=== PATIENT | male | born 1960 | race Hispanic/Latino ===

== ENCOUNTER 2019-10-24 20:28 | Inpatient (IN) | payer SELFPAY ==
[2019-10-24 21:05] LABS: #Eosinphils 0.1 thou/uL (0.0-0.7); #Monocytes 0.6 thou/uL (0.11-0.59); #Neutrophils 5.1 thou/uL (1.40-6.50); %Basophils 0.4 % (0.0-1.0); %Eosinophils 1.2 % (0.0-10.0); %Lymphocytes 33.9 % (21.0-51.0); %Monocytes 6.6 % (0.0-10.0); %Neutrophils 57.9 % (42.0-75.0); Hemoglobin 15.4 g/dL (14.0-18.0); Mean Corpuscular HGB CONC 34.5 g/dL (32.0-36.0); Mean Corpuscular Hemoglobin 30.7 pg (27.0-31.0); Mean Corpuscular Volume 89.1 fL (78.0-98.0); Mean Platelet Volume 9.3 fL (7.4-10.4); Platelet Count 194 thou/uL (130-400); RBC Distribution Width 11.7 % (11.5-14.5); Red Blood Cell (RBC) Count 5.02 mill/uL (4.70-6.10); White Blood Cell (WBC) Count 8.8 thou/uL (4.8-10.8)
[2019-10-24 21:29] LABS: ALT (SGPT) 18 U/L (8-55); AST (SGOT) 16 U/L (5-34); Albumin 4.4 g/dL (3.5-5.0); Alkaline Phosphatase 90 U/L (40-110); Anion Gap 14 mmol/L (10-20); BUN (Urea Nitrogen) 18 mg/dL (8.4-25.7); Bilirubin, Total 0.6 mg/dL (0.2-1.2); CK (CPK) 146 U/L (30-200); Calc. Creatinine Clearance 0 mL/min (70-130); Calcium 9.4 mg/dL (7.8-10.44); Carbon Dioxide 25 mmol/L (22-29); Chloride 104 mmol/L (98-107); Estimated GFR-MDRD 74; Globulin 3.3 g/dL (2.4-3.5); Glucose 96 mg/dL (70-105); Lipase 32 U/L (8-78); Potassium 3.9 mmol/L (3.5-5.1); Protein, Total 7.7 g/dL (6.0-8.3); Sodium 139 mmol/L (136-145)
[2019-10-24 21:49] LABS: CKMB 1.7 ng/mL (0-6.6)
[2019-10-24] MEDS ORDERED: Aspirin Chewable 81 MG TAB ONE (22:02)
[2019-10-24] MEDS ORDERED: Nitroglycerin 0.4 MG TAB (25 Tab Bottle) PO PRN (23:17)
[2019-10-24] MEDS ORDERED: Pantoprazole 40 MG VIAL IVP SCH (23:30)
--- NOTE | 2019-10-25 00:06 | PDOC.HHP ---
Hospitalist HPI - History of Present Illness Chest pain History of Present Illness: PCP: Will The patient is a 59/M with PMH significant for GERD and obesity that presents to the ER for the above complaint. The patient reports developing chest pain at 1600, while driving in the car with his spouse. Pain located epigastric, non radiating, 7/10 at onset, exacerbated by laying flat and relieved by belching, cold water and eating ice. Although, he did trial antacids with no relief. Currently, he says sitting up in the chair makes it better. He denies any heart palpitations, light headedness, sob, wheezing, nausea or vomiting. Has had reflux in the past. States this pain is similar. He had trialed prilosec several years ago, but stopped taking because " I dont like to take pills". Has been treating with dietary changes, such as small meals prior to bedtime and stopped drinking caffeinated drinks. Currently his pain has subsided. He has no history of HTN, HLD, DM and does not smoke. He has no history of COPD or asthma. He has no history of DVT or PE. He has no history of illicit drug usage. His father and brother have had heart bypass surgery ED Course: EKG NSR, 71 bpm, no ST elevations Trop 0.082 CKMB 1.7 CXR no acute cardiopulmonary process CMP and CBC and lipase unremarkable Given ASA 324mg Hospitalist ROS - Review of Systems Constitutional: denies: fever, chills, sweats, weakness, malaise, other Eyes: denies: pain, vision change, conjunctivae inflammation, eyelid inflammation, redness, other ENT: denies: ear pain, ear discharge, nose pain, nose discharge, nose congestion , mouth pain, mouth swelling, throat pain, throat swelling, other Respiratory: denies: cough, dry, shortness of breath, hemoptysis, SOB with excertion, pleuritic pain, sputum, wheezing, other Cardiovascular: reports: chest pain. denies: palpitations, orthopnea, paroxysmal noc. dyspnea, edema, light headedness Gastrointestinal: denies: nausea, vomiting, abdominal pain, diarrhea, constipation, melena, hematochezia, other Genitourinary: denies: dysuria, frequency, incontinence, hematuria, retention, other Musculoskeletal: denies: neck pain, shoulder pain, arm pain, back pain, hand pain, leg pain, foot pain, other Skin: denies: rash, lesions, jaquelin, bruising, other Neurological: denies: weakness, numbness, incoordination, change in speech, confusion, seizures, other Hospitalist History - Past Medical History Gastrointestinal: reports: GERD, Other (obesity) - Family History Family History: reports: cardiac disorder (father and brother Bypass surgery) - Social History Smoking Status: Never smoker Alcohol: reports: None Drugs: reports: none Living Situation: With Family Occupation: Lives in [place], retired HH worker Activity level: independent ambulation - Exam General Appearance: NAD, awake alert Eye: anicteric sclera ENT: normocephalic atraumatic Neck: supple, no JVD Heart: RRR, no murmur, no gallops, no rubs, normal peripheral pulses Respiratory: CTAB, no wheezes, no rales, no ronchi, no tachypnea Gastrointestinal: soft, non-tender, non-distended, normal bowel sounds, no guarding, no rigidity Extremities: no cyanosis, no edema Neurological: no focal deficits Musculoskeletal: normal tone, normal strength Psychiatric: normal affect, A&O x 3 Hospitalist Results - Labs Result Diagrams: 10/24/19 20:54 10/24/19 20:54 Lab results: WBC 8.8 thou/uL (4.8-10.8) 10/24/19 20:54 Hgb 15.4 g/dL (14.0-18.0) 10/24/19 20:54 Hct 44.7 % (42.0-52.0) 10/24/19 20:54 MCV 89.1 fL (78.0-98.0) 10/24/19 20:54 Plt Count 194 thou/uL (130-400) 10/24/19 20:54 Neutrophils % 57.9 % (42.0-75.0) 10/24/19 20:54 Sodium 139 mmol/L (136-145) 10/24/19 20:54 Potassium 3.9 mmol/L (3.5-5.1) 10/24/19 20:54 Chloride 104 mmol/L (98-107) 10/24/19 20:54 Carbon Dioxide 25 mmol/L (22-29) 04/14/20 20:54 BUN 18 mg/dL (8.4-25.7) 10/24/19 20:54 Creatinine 1.03 mg/dL (0.7-1.3) 10/24/19 20:54 Glucose 96 mg/dL (70-105) 10/24/19 20:54 Calcium 9.4 mg/dL (7.8-10.44) 10/24/19 20:54 Total Bilirubin 0.6 mg/dL (0.2-1.2) 10/24/19 20:54 AST 16 U/L (5-34) 10/24/19 20:54 ALT 18 U/L (8-55) 10/24/19 20:54 Alkaline Phosphatase 90 U/L (40-110) 10/24/19 20:54 Creatine Kinase 146 U/L (30-200) 10/24/19 20:54 CK-MB (CK-2) 1.7 ng/mL (0-6.6) 10/24/19 20:54 Troponin I 0.082 ng/mL (< 0.028) H 10/24/19 20:54 Serum Total Protein 7.7 g/dL (6.0-8.3) 10/24/19 20:54 Albumin 4.4 g/dL (3.5-5.0) 10/24/19 20:54 Lipase 32 U/L (8-78) 10/24/19 20:54 - EKG Interpretation EKG: NSR - Radiology Interpretation Chest x-ray Status: report reviewed by mo Hospitalist H&P A/P - Problem (1) Chest pain Code(s): R07.9 - CHEST PAIN, UNSPECIFIED Status: Acute Assessment and Plan: Admit to telemetry, observation status Expected stay less than 2 midnights HEART SCORE 2, low risk Trend troponins NM exercise Stress test Continue ASA Check mag and TSH and FLP NPO after midnight (2) Elevated troponin Code(s): R79.89 - OTHER SPECIFIED ABNORMAL FINDINGS OF BLOOD CHEMISTRY Status : Acute Assessment and Plan: Trend troponins (3) GERD (gastroesophageal reflux disease) Code(s): K21.9 - GASTRO-ESOPHAGEAL REFLUX DISEASE WITHOUT ESOPHAGITIS Status: Chronic Assessment and Plan: Start protonix 40mg IVP tonight (4) Obesity (BMI 30-39.9) Code(s): E66.9 - OBESITY, UNSPECIFIED Status: Acute Assessment and Plan: Patient actively trying to lose weight Diet and exercise - Plan Plan: SCDs for DVT prophylaxis Protonix for GI prophylaxis Consult walking program Full Code FERNANDO Garcia (spouse) at [phone] Uribe
[2019-10-25] MEDS ORDERED: Magnesium 2 GM/50 ML 2 GM in Premix Bag 1 BAG IVPB SCH (00:30)
[2019-10-25 00:43] VITALS: BMI 38.7
[2019-10-25] MEDS: Nitroglycerin 2% Ointment 1 INCH/1 GM Packet TOP SCH ×3 (02:26→21:35)
[2019-10-25 06:01] LABS: Cardiac Risk 5.5 (Less than 4.5); Magnesium 2.3 mg/dL (1.6-2.6)
[2019-10-25 06:10] LABS: Troponin I 2.098 ng/mL (< 0.028)
[2019-10-25] MEDS ORDERED: Enoxaparin Sodium 100 MG/ML SYRINGE SC SCH (06:30)
--- NOTE | 2019-10-25 07:51 | RAD ---
Chest one view HISTORY: Chest pain. FINDINGS: Cardiac silhouette is magnified by projection. Pulmonary vasculature is unremarkable. Mediastinum is midline. No lobar consolidation or evidence of pneumothorax. monitor and storage bin tender leads overlie the chest. IMPRESSION : No active cardiopulmonary abnormalities are demonstrated.
[2019-10-25] MEDS ORDERED: Communication Order-Pharmacy FS SCH (08:45)
[2019-10-25] MEDS ORDERED: Aspirin 325 mg Enteric Coated Tablet PO SCH (09:00)
[2019-10-25] MEDS ORDERED: Nitroglycerin 100MG/250ML BOT 250 ML ONE (11:32)
[2019-10-25] MEDS ORDERED: Verapamil 5 MG/2 ML VIAL ONE (11:32)
[2019-10-25] MEDS ORDERED: Heparin 10,000 UNITS/1 ML VIAL ONE (11:32)
--- NOTE | 2019-10-25 11:42 | PDOC.HOSPP ---
- Subjective Encounter Date: 10/25/19 Encounter Time: 11:40 Subjective: was seen today in follow-up of NSTEMI. He says right now he feels fine. He denies any chest pain. - Objective Vital Signs & Weight: Vital Signs (12 hours) Temp Pulse Resp BP BP Pulse Ox 10/25/19 11:30 97.9 F 57 L 16 125/83 99 10/25/19 07:56 97.8 F 61 16 129/85 100 10/25/19 03:06 97.7 F 52 L 17 145/95 H 98 10/25/19 01:43 54 L 17 139/86 99 10/25/19 00:32 97.9 F 68 14 153/75 H 153/75 H 98 Weight Weight 277 lb 11.214 oz I&O: 10/24/19 10/25/19 10/26/19 06:59 06:59 06:59 Intake Total 50 Balance 50 Result Diagrams: 10/24/19 20:54 10/24/19 20:54 Hospitalist ROS - Medication Medications: Active Medications Generic Name Dose Route Start Last Admin Trade Name Freq PRN Reason Stop Dose Admin Aspirin 81 mg 10/25/19 09:00 10/25/19 09:09 Ecotrin PO Not Given DAILY [facility] Nitroglycerin 0.5 inch 10/25/19 06:00 10/25/19 02:26 Nitro-Bid 2% Ointment TOP 0.5 inch Q8HR [facility] Administration - Exam Eye: PERRL, anicteric sclera Heart: RRR, no murmur, no gallops, no rubs, normal peripheral pulses Respiratory: CTAB, no wheezes, no rales, no ronchi, normal chest expansion, no tachypnea, normal percussion Gastrointestinal: soft, non-tender, non-distended, normal bowel sounds, no palpable masses Hosp A/P (1) NSTEMI (non-ST elevated myocardial infarction) Code(s): I21.4 - NON-ST ELEVATION (NSTEMI) MYOCARDIAL INFARCTION Status: Acute (2) Hypertension Code(s): I10 - ESSENTIAL (PRIMARY) HYPERTENSION Status: Chronic (3) Diabetes mellitus type 2 in obese Code(s): E11.69 - TYPE 2 DIABETES MELLITUS WITH OTHER SPECIFIED COMPLICATION; E66.9 - OBESITY, UNSPECIFIED Status: Chronic (4) Obesity (BMI 30-39.9) Code(s): E66.9 - OBESITY, UNSPECIFIED Status: Chronic (5) Dyslipidemia Code(s): E78.5 - HYPERLIPIDEMIA, UNSPECIFIED Status: Chronic - Plan * NSTEMI- has been evaluated by Dr. Anders. The plan is for cardiac cath * HTN- blood pressure is stable * DM-blood glucose is stable * Dylipidemia- continue high dose Lipitor * Discussed heart health diet
--- NOTE | 2019-10-25 12:24 | CON ---
DATE OF CONSULTATION: 10/25/2019 INDICATION FOR CONSULTATION: A 59-year-old gentleman with [id number] elevation myocardial infarction. HISTORY OF PRESENT ILLNESS: This is a very pleasant 59-year-old gentleman, who has had no previous cardiac history, but does have hypercholesterolemia. He has not been taking any medication. He has family members who have undergone bypass surgery, two brothers and his father also, some of them in their 50s and his father I believe was up in his late 60s or 70s when he had bypass surgery. He has had no previous cardiac history, but yesterday while driving, he noted some what he thought was indigestion, radiated to the lower retrosternal area, was not improved with antacids. He did say that ice helped some and he said he has not had pain like this in the past. He has had some reflux in the past, which is worse if he is lying down, but otherwise he has had no previous pain in the past. He has no pain this morning. His cardiac enzymes on admission showed a troponin I of 0.08. This continued to increased up to 0.29 in this morning, it is now up to 2.09. His EKG showed a normal sinus rhythm with no acute changes. He has had a couple of episodes of AIVR, about 16 beats was the longest, but otherwise seems to be relatively stable at this time, but continues to have elevation of the cardiac enzymes, which appear to be increasing. He had no other complaints. He had no shortness of breath or dyspnea. PAST MEDICAL HISTORY: Unremarkable for any significant operations or illnesses. REVIEW OF SYSTEMS: A 12-point review of systems unremarkable except for he does wear reading glasses. He has gastroesophageal reflux disease, and he has sciatica. FAMILY HISTORY: As noted above with family members of coronary artery disease. ALLERGIES: NONE. MEDICATIONS: None. Since being in the hospital, he has been placed on magnesium, nitroglycerin patch, aspirin 81 mg a day. He has also been given Lovenox last night. He was given Protonix as well as p.r.n. medications. SOCIAL HISTORY: He is . He has no biological children. He has no alcohol or tobacco abuse. 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 LABORATORY DATA: Shows a potassium of 3.9, sodium was 139, BUN was 18, creatinine is 1.03 with glucose of 96. LDL was 143, triglycerides 162. Hemoglobin was 15.4, WBC of 8.8, and platelet count is 194,000. PHYSICAL EXAMINATION: GENERAL: Reveals a well-developed, well-nourished, somewhat overweight gentleman. VITAL SIGNS: Blood pressure 129/85, heart rate is 61 and regular. He is afebrile. Respiratory rate 16, O2 saturation is 98% to 100%. HEENT: Shows head to be normocephalic and atraumatic. Carotid pulses are present. There were no bruits. CHEST: Clear to auscultation without rales, rhonchi, or wheezing. CARDIOVASCULAR: Reveals a regular rate and rhythm at this time. There were no significant murmurs, heaves, thrills, bruits, or rubs noted. ABDOMEN: Soft and nontender. Positive bowel sounds are present. No organomegaly or masses were appreciated. EXTREMITIES: Showed no clubbing, cyanosis, or edema. Pedal pulses are present. NEUROLOGIC: The patient appears to be intact. EKG as noted above. Enzymes as noted above. IMPRESSION: 1. Tut-GS-xulfzti elevation myocardial infarction with increased cardiac enzymes, which continue to increase. I have suggested he undergo cardiac catheterization to rule out evidence of severe underlying coronary artery disease. He understands and agrees to proceed. I have explained the procedure and the risks to include bleeding, infection, possible myocardial infarction, CVA, renal insufficiency, allergic contrast reaction, even the possibility of . He may need to undergo angioplasty, stent placement, or bypass surgery. He understands and agrees to proceed. 2. History of hypercholesterolemia. He will need to be started on medications for his cholesterol. I believe he is not interested in taking too many medications, but given his high risk of coronary artery disease, we would certainly start him on Crestor or Lipitor at this time. Further recommendations will depend on the results of the cardiac catheterization. Job ID: [id number]
[2019-10-25] MEDS ORDERED: Midazolam HCl 2 mg/2 ml Vial ONE (12:26)
[2019-10-25] MEDS ORDERED: Aggrastat 12.5 MG/250 ML 250 ML ONE (13:33)
--- NOTE | 2019-10-25 14:43 | EKG ---
Test Reason : STAT Blood Pressure : / mmHG Vent. Rate : 054 BPM Atrial Rate : 054 BPM P-R Int : 156 ms QRS Dur : 098 ms QT Int : 450 ms P-R-T Axes : 027 011 019 degrees QTc Int : 426 ms Sinus bradycardia Nonspecific T wave abnormality Low voltage QRS Septal infarct , age undetermined cannot be excluded Abnormal ECG Confirmed by MARLYN WHITE ([id number]) on 10/25/2019 2:43:32 PM Referred By: NAZIA Confirmed By:MARLYN WHITE
[2019-10-25] MEDS ORDERED: Mag-Al 1200 mg/1200 mg/30 ML UDCUP PO PRN (15:22)
[2019-10-25] MEDS ORDERED: TICAGRELOR 90 MG TABLET PO SCH (15:22)
[2019-10-25] MEDS ORDERED: traMADol HCl 50 MG TAB PO PRN (15:22)
[2019-10-25] MEDS ORDERED: Acetaminophen/Codeine 30-300mg Tablet PO PRN (15:22)
[2019-10-25] MEDS ORDERED: Zolpidem Tartrate 5 MG TAB PO PRN (15:22)
[2019-10-25] MEDS ORDERED: Milk Of Magnesia 30 ML UDCUP PO PRN (15:22)
[2019-10-25 15:50] LABS: #Basophils 0.1 thou/uL (0.0-0.2); #Eosinphils 0.1 thou/uL (0.0-0.7); #Lymphocytes 2.3 thou/uL (1.20-3.40); #Monocytes 0.5 thou/uL (0.11-0.59); #Neutrophils 5.8 thou/uL (1.40-6.50); %Eosinophils 0.7 % (0.0-10.0); %Lymphocytes 26.7 % (21.0-51.0); %Monocytes 5.7 % (0.0-10.0); Hemoglobin 15.9 g/dL (14.0-18.0); Mean Corpuscular HGB CONC 34.8 g/dL (32.0-36.0); Mean Corpuscular Hemoglobin 31.2 pg (27.0-31.0); Mean Corpuscular Volume 89.6 fL (78.0-98.0); Mean Platelet Volume 8.8 fL (7.4-10.4); Platelet Count 195 thou/uL (130-400); RBC Distribution Width 11.9 % (11.5-14.5); Red Blood Cell (RBC) Count 5.12 mill/uL (4.70-6.10); White Blood Cell (WBC) Count 8.8 thou/uL (4.8-10.8)
[2019-10-25 16:18] LABS: Troponin I 11.288 ng/mL (< 0.028)
[2019-10-25] MEDS: Carvedilol 3.125 MG TAB PO SCH (17:03)
[2019-10-25 19:59] LABS: #Basophils 0.1 thou/uL (0.0-0.2); #Eosinphils 0.1 thou/uL (0.0-0.7); #Lymphocytes 2.7 thou/uL (1.20-3.40); #Monocytes 0.8 thou/uL (0.11-0.59); #Neutrophils 6.3 thou/uL (1.40-6.50); %Basophils 0.9 % (0.0-1.0); %Eosinophils 0.9 % (0.0-10.0); %Lymphocytes 26.8 % (21.0-51.0); %Monocytes 7.8 % (0.0-10.0); %Neutrophils 63.5 % (42.0-75.0); Hemoglobin 15.2 g/dL (14.0-18.0); Mean Corpuscular HGB CONC 33.4 g/dL (32.0-36.0); Mean Corpuscular Hemoglobin 29.9 pg (27.0-31.0); Mean Corpuscular Volume 89.5 fL (78.0-98.0); Mean Platelet Volume 8.8 fL (7.4-10.4); Platelet Count 193 thou/uL (130-400); RBC Distribution Width 11.9 % (11.5-14.5); Red Blood Cell (RBC) Count 5.09 mill/uL (4.70-6.10); White Blood Cell (WBC) Count 9.9 thou/uL (4.8-10.8)
[2019-10-25 20:32] LABS: Troponin I 14.956 ng/mL (< 0.028)
[2019-10-25] MEDS ORDERED: Enoxaparin Sodium 120 MG/0.8 ML SYRINGE SC SCH (21:00)
[2019-10-25] MEDS: TICAGRELOR 90 MG TABLET PO SCH (21:34)
[2019-10-25] MEDS: Atorvastatin Calcium 40 MG TAB PO SCH (21:34)
[2019-10-25] MEDS: Aggrastat 12.5 MG/250 ML 250 ML IVPB SCH (21:59)
[2019-10-26 04:43] LABS: #Eosinphils 0.1 thou/uL (0.0-0.7); #Lymphocytes 2.2 thou/uL (1.20-3.40); #Monocytes 0.6 thou/uL (0.11-0.59); #Neutrophils 6.5 thou/uL (1.40-6.50); %Basophils 0.4 % (0.0-1.0); %Eosinophils 0.9 % (0.0-10.0); %Lymphocytes 23.2 % (21.0-51.0); %Monocytes 6.3 % (0.0-10.0); %Neutrophils 69.1 % (42.0-75.0); Hemoglobin 15.3 g/dL (14.0-18.0); Mean Corpuscular HGB CONC 32.8 g/dL (32.0-36.0); Mean Corpuscular Hemoglobin 29.2 pg (27.0-31.0); Mean Corpuscular Volume 89.1 fL (78.0-98.0); Mean Platelet Volume 9.2 fL (7.4-10.4); Platelet Count 205 thou/uL (130-400); Red Blood Cell (RBC) Count 5.25 mill/uL (4.70-6.10); White Blood Cell (WBC) Count 9.5 thou/uL (4.8-10.8)
[2019-10-26 05:04] LABS: ALT (SGPT) 25 U/L (8-55); AST (SGOT) 73 U/L (5-34); Albumin 4.2 g/dL (3.5-5.0); Alkaline Phosphatase 74 U/L (40-110); Anion Gap 12 mmol/L (10-20); BUN (Urea Nitrogen) 14 mg/dL (8.4-25.7); Bilirubin, Total 0.9 mg/dL (0.2-1.2); Calc. Creatinine Clearance 132 mL/min (70-130); Calcium 9.6 mg/dL (7.8-10.44); Carbon Dioxide 28 mmol/L (22-29); Chloride 102 mmol/L (98-107); Estimated GFR-MDRD 69; Globulin 3.2 g/dL (2.4-3.5); Glucose 117 mg/dL (70-105); Protein, Total 7.4 g/dL (6.0-8.3); Sodium 138 mmol/L (136-145)
[2019-10-26] MEDS: Nitroglycerin 2% Ointment 1 INCH/1 GM Packet TOP SCH ×3 (07:19→22:03)
[2019-10-26] MEDS ORDERED: Aggrastat 12.5 MG/250 ML 250 ML IVPB SCH (08:32)
[2019-10-26] MEDS ORDERED: Carvedilol 3.125 MG TAB PO SCH (09:00)
[2019-10-26] MEDS: Aggrastat 12.5 MG/250 ML 250 ML IVPB SCH (09:00)
[2019-10-26] MEDS: Aspirin Chewable 81 MG TAB PO SCH (09:04)
[2019-10-26] MEDS: Lisinopril 2.5 MG TAB PO SCH (09:05)
[2019-10-26] MEDS: TICAGRELOR 90 MG TABLET PO SCH ×2 (09:06→22:03)
[2019-10-26 09:22] LABS: Troponin I 12.797 ng/mL (< 0.028)
[2019-10-26] MEDS: Carvedilol 3.125 MG TAB PO SCH ×2 (09:24→16:14)
--- NOTE | 2019-10-26 09:36 | PDOC.CPN ---
- Subjective Date: 10/26/19 Time: 09:50 Interval history: The pt seen and examined. No overnight events. No cardiac complaints. - Objective Allergies/Adverse Reactions: Allergies Allergy/AdvReac Type Severity Reaction Status Date / Time No Known Allergies Allergy Unverified 10/24/19 23:36 Visit Medications: Current Medications Acetaminophen/Codeine Phosphate (Tylenol #3) 1 tab PO Q4H PRN PRN Reason: Mild Pain (1-3) Al Hydroxide/Mg Hydroxide (Maalox) 30 ml PO Q3H PRN PRN Reason: Indigestion Aspirin (Aspirin Chewable) 81 mg PO DAILY [facility] Last Admin: 10/26/19 09:04 Dose: 81 mg Atorvastatin Calcium (Lipitor) 80 mg PO HS [facility] Last Admin: 10/25/19 21:34 Dose: 80 mg Carvedilol (Coreg) 1.56 mg PO BID-[facility] Carvedilol (Coreg) 1.56 mg PO NOW [facility] Stop: 10/26/19 11:00 Last Admin: 10/26/19 09:07 Dose: 1.56 mg Tirofiban/Sodium Chloride (Aggrastat 12.5 Mg/250 Ml) 250 mls @ 0 mls/hr IVPB INF [facility]; Protocol Stop: 10/26/19 13:00 Lisinopril (Zestril) 2.5 mg PO DAILY [facility] Last Admin: 10/26/19 09:05 Dose: 2.5 mg Magnesium Hydroxide (Milk Of Magnesium) 30 ml PO Q12H PRN PRN Reason: Constipation Nitroglycerin (Nitrostat) 0.4 mg PO Q5MIN PRN PRN Reason: Chest Pain Nitroglycerin (Nitro-Bid 2% Ointment) 0.5 inch TOP Q8HR [facility] Last Admin: 10/26/19 07:19 Dose: Not Given Sodium Chloride (Flush - Normal Saline) 10 ml IVF PRN PRN PRN Reason: Saline Flush Ticagrelor (Brilinta) 90 mg PO BID [facility] Last Admin: 10/26/19 09:06 Dose: 90 mg Tramadol HCl (Ultram) 50 mg PO Q6H PRN PRN Reason: Moderate Pain (4-6) Zolpidem Tartrate (Ambien) 5 mg PO HSPRN PRN PRN Reason: Insomnia Vital Signs & Weight: Vital Signs Temp Pulse Resp BP Pulse Ox 10/26/19 09:02 98 F 72 22 H 126/63 95 10/26/19 03:29 98.1 F 66 17 144/65 H 97 10/26/19 00:06 63 Weight 270 lb 6.4 oz - Physical Exam General: alert & oriented x3 HEENT: mucus membranes moist Neck: supple neck Cardiac: regular rate and rhythm, S1/S2 Lungs: clear to auscultation Neuro: cranial nerve 2-12 intact Abdomen: unremarkable Extremities: no edema Skin: clear Musculoskeletal: normal range of motion - Labs Result Diagrams: 10/26/19 15:14 10/26/19 04:23 Troponin/CKMB CK-MB (CK-2) 1.7 ng/mL (0-6.6) 10/24/19 20:54 Troponin I 12.797 ng/mL (< 0.028) H* 10/26/19 04:23 - Telemetry Sinus rhythms and dysrhythmias: sinus rhythm - Assessment/Plan Assessment/Plan: 1. CAD with CK x 1 in mid [place] with thrombectomy of LAD thrombus on 10/25/2019 - cont. Aggrasat until 1300; On ASA and Brilinta. He should be on Brilinta for 1 month and may be changed to Plavix 2. HTN - Coreg was decreased to 3.125mg 1/2 tab BID; 3. HLD - On Lipitor 80mg qd 4. Obesity - the pt is willing to change his life style and eating habit. JOSE reviewed * S/p C on 10/25/2019 with CK x 1 in mid [place] with thrombectomy of LAD thrombus. Pt. seen and eval. by me. I agree with the A/P by the DYE STAND LOADER. He denies any further chest discomfort s/p ptca/stent to the LAD with thrombectomy of the LAD prior to stent placement. Chest clear. RRR, no edema. Continue Brilinta, ASA coreg if tolerated and Lisinopril. Hopefully home in AM.
[2019-10-26 09:50] LABS: #Basophils 0.1 thou/uL (0.0-0.2); #Eosinphils 0.1 thou/uL (0.0-0.7); #Lymphocytes 1.8 thou/uL (1.20-3.40); #Monocytes 0.5 thou/uL (0.11-0.59); #Neutrophils 5.5 thou/uL (1.40-6.50); %Basophils 0.6 % (0.0-1.0); %Eosinophils 1.1 % (0.0-10.0); %Lymphocytes 23.2 % (21.0-51.0); %Monocytes 6.3 % (0.0-10.0); %Neutrophils 68.7 % (42.0-75.0); Hemoglobin 15.5 g/dL (14.0-18.0); Mean Corpuscular HGB CONC 34.3 g/dL (32.0-36.0); Mean Corpuscular Hemoglobin 30.6 pg (27.0-31.0); Mean Corpuscular Volume 89.3 fL (78.0-98.0); Mean Platelet Volume 8.9 fL (7.4-10.4); Platelet Count 207 thou/uL (130-400); RBC Distribution Width 11.8 % (11.5-14.5); Red Blood Cell (RBC) Count 5.06 mill/uL (4.70-6.10); White Blood Cell (WBC) Count 7.9 thou/uL (4.8-10.8)
--- NOTE | 2019-10-26 11:19 | PDOC.HOSPP ---
- Subjective Encounter Date: 10/26/19 Encounter Time: 11:17 Subjective: was seen today in follow-up of NSTEMI. He says he feels fine, and very " relaxed". He denies chest pain or shortness of breath. - Objective Vital Signs & Weight: Vital Signs (12 hours) Temp Pulse Resp BP Pulse Ox 10/26/19 09:02 98 F 72 22 H 126/63 95 10/26/19 03:29 98.1 F 66 17 144/65 H 97 10/26/19 00:06 63 Weight Weight 270 lb 6.4 oz I&O: 10/25/19 10/26/19 10/27/19 06:59 06:59 06:59 Intake Total 50 200 120 Output Total 525 Balance 50 -325 120 Result Diagrams: 10/26/19 09:40 10/26/19 04:23 Hospitalist ROS - Medication Medications: Active Medications Generic Name Dose Route Start Last Admin Trade Name Freq PRN Reason Stop Dose Admin Aspirin 81 mg 10/26/19 09:00 10/26/19 09:04 Aspirin Chewable PO 81 mg DAILY [facility] Administration Atorvastatin Calcium 80 mg 10/25/19 21:00 10/25/19 21:34 Lipitor PO 80 mg HS [facility] Administration Lisinopril 2.5 mg 10/26/19 09:00 10/26/19 09:05 Zestril PO 2.5 mg DAILY [facility] Administration Nitroglycerin 0.5 inch 10/25/19 06:00 10/26/19 07:19 Nitro-Bid 2% Ointment TOP Not Given Q8HR [facility] Ticagrelor 90 mg 10/25/19 21:00 10/26/19 09:06 Brilinta PO 90 mg BID [facility] Administration - Exam Eye: PERRL Heart: RRR, no murmur, no gallops, no rubs, normal peripheral pulses Respiratory: CTAB, no wheezes, no rales, no ronchi, normal chest expansion, no tachypnea Gastrointestinal: soft, non-tender, non-distended, normal bowel sounds, no palpable masses Extremities: no cyanosis, no edema Hosp A/P (1) NSTEMI (non-ST elevated myocardial infarction) Code(s): I21.4 - NON-ST ELEVATION (NSTEMI) MYOCARDIAL INFARCTION Status: Acute (2) Hypertension Code(s): I10 - ESSENTIAL (PRIMARY) HYPERTENSION Status: Chronic (3) Diabetes mellitus type 2 in obese Code(s): E11.69 - TYPE 2 DIABETES MELLITUS WITH OTHER SPECIFIED COMPLICATION; E66.9 - OBESITY, UNSPECIFIED Status: Chronic (4) Obesity (BMI 30-39.9) Code(s): E66.9 - OBESITY, UNSPECIFIED Status: Chronic (5) Dyslipidemia Code(s): E78.5 - HYPERLIPIDEMIA, UNSPECIFIED Status: Chronic - Plan * NSTEMI-patient is s/p cath with STENT to the LAD. There was also a thrombus present, and he has been on aggrestat since last night. Scheduled to be discontinued at 13:00. * HTN- stable- continue low dose Carvediolol * DM-blood glucose is stable * Dylipidemia- continue high dose Lipitor * Disposition as per Cardiology
[2019-10-26 15:25] LABS: #Eosinphils 0.1 thou/uL (0.0-0.7); #Lymphocytes 2.4 thou/uL (1.20-3.40); #Monocytes 0.6 thou/uL (0.11-0.59); #Neutrophils 5.8 thou/uL (1.40-6.50); %Basophils 0.5 % (0.0-1.0); %Eosinophils 1.2 % (0.0-10.0); %Lymphocytes 27.2 % (21.0-51.0); %Monocytes 6.2 % (0.0-10.0); %Neutrophils 64.9 % (42.0-75.0); Hemoglobin 15.3 g/dL (14.0-18.0); Mean Corpuscular HGB CONC 34.5 g/dL (32.0-36.0); Mean Corpuscular Hemoglobin 30.9 pg (27.0-31.0); Mean Corpuscular Volume 89.8 fL (78.0-98.0); Mean Platelet Volume 9.2 fL (7.4-10.4); Platelet Count 208 thou/uL (130-400); RBC Distribution Width 11.9 % (11.5-14.5); Red Blood Cell (RBC) Count 4.95 mill/uL (4.70-6.10); White Blood Cell (WBC) Count 8.9 thou/uL (4.8-10.8)
--- NOTE | 2019-10-26 16:06 | EKG ---
Test Reason : Blood Pressure : / mmHG Vent. Rate : 054 BPM Atrial Rate : 054 BPM P-R Int : 154 ms QRS Dur : 094 ms QT Int : 412 ms P-R-T Axes : 009 -24 017 degrees QTc Int : 390 ms Sinus bradycardia Low voltage QRS Septal infarct , age undetermined Abnormal ECG Confirmed by MARLYN WHITE ([id number]) on 10/26/2019 4:05:55 PM Referred By: EMELY Confirmed By:MARLYN WHITE
--- NOTE | 2019-10-26 16:14 | EKG ---
Test Reason : Blood Pressure : / mmHG Vent. Rate : 064 BPM Atrial Rate : 064 BPM P-R Int : 142 ms QRS Dur : 102 ms QT Int : 466 ms P-R-T Axes : 011 002 115 degrees QTc Int : 480 ms Normal sinus rhythm Low voltage QRS Anteroseptal infarct , age undetermined T wave abnormality, consider lateral ischemia Abnormal ECG Confirmed by MARLYN WHITE ([id number]) on 10/26/2019 4:13:50 PM Referred By: EMELY Confirmed By:MARLYN WHITE
[2019-10-26 21:52] LABS: #Basophils 0.1 thou/uL (0.0-0.2); #Eosinphils 0.1 thou/uL (0.0-0.7); #Lymphocytes 2.7 thou/uL (1.20-3.40); #Monocytes 0.5 thou/uL (0.11-0.59); #Neutrophils 5.2 thou/uL (1.40-6.50); %Eosinophils 1.5 % (0.0-10.0); %Lymphocytes 31.6 % (21.0-51.0); Hemoglobin 15.1 g/dL (14.0-18.0); Mean Corpuscular HGB CONC 34.8 g/dL (32.0-36.0); Mean Corpuscular Hemoglobin 30.9 pg (27.0-31.0); Mean Corpuscular Volume 88.8 fL (78.0-98.0); Platelet Count 197 thou/uL (130-400); RBC Distribution Width 11.8 % (11.5-14.5); Red Blood Cell (RBC) Count 4.87 mill/uL (4.70-6.10); White Blood Cell (WBC) Count 8.6 thou/uL (4.8-10.8)
[2019-10-26] MEDS: Atorvastatin Calcium 40 MG TAB PO SCH (22:03)
[2019-10-27 05:08] LABS: #Basophils 0.1 thou/uL (0.0-0.2); #Eosinphils 0.1 thou/uL (0.0-0.7); #Lymphocytes 2.4 thou/uL (1.20-3.40); #Monocytes 0.6 thou/uL (0.11-0.59); #Neutrophils 6.1 thou/uL (1.40-6.50); %Eosinophils 1.5 % (0.0-10.0); %Lymphocytes 25.4 % (21.0-51.0); %Monocytes 6.6 % (0.0-10.0); %Neutrophils 65.6 % (42.0-75.0); Hemoglobin 14.9 g/dL (14.0-18.0); Mean Corpuscular HGB CONC 34.2 g/dL (32.0-36.0); Mean Corpuscular Hemoglobin 30.5 pg (27.0-31.0); Mean Corpuscular Volume 89.3 fL (78.0-98.0); Mean Platelet Volume 9.2 fL (7.4-10.4); Platelet Count 190 thou/uL (130-400); RBC Distribution Width 11.8 % (11.5-14.5); Red Blood Cell (RBC) Count 4.89 mill/uL (4.70-6.10); White Blood Cell (WBC) Count 9.3 thou/uL (4.8-10.8)
[2019-10-27] MEDS: TICAGRELOR 90 MG TABLET PO SCH ×2 (08:03→20:27)
[2019-10-27] MEDS: Lisinopril 2.5 MG TAB PO SCH (08:03)
[2019-10-27] MEDS: Aspirin Chewable 81 MG TAB PO SCH (08:04)
[2019-10-27] MEDS: Carvedilol 3.125 MG TAB PO SCH (08:04)
[2019-10-27] MEDS: Nitroglycerin 2% Ointment 1 INCH/1 GM Packet TOP SCH (08:06)
[2019-10-27 09:17] LABS: White Blood Cell (WBC) Count 8.7 thou/uL (4.8-10.8)
[2019-10-27 09:52] LABS: Band 1 % (5-11); Eosinophils 1 % (0-10); Lymphocytes 29 % (21-51); MDiff Complete? YES; Mean Corpuscular HGB CONC 33.3 g/dL (32.0-36.0); Mean Corpuscular Hemoglobin 29.5 pg (27.0-31.0); Mean Corpuscular Volume 88.6 fL (78.0-98.0); Monocytes 6 % (0-10); Neutrophil 63 % (42-75); Platelet Count 200 thou/uL (130-400); RBC Distribution Width 11.8 % (11.5-14.5); RBC Morphology Normal; Red Blood Cell (RBC) Count 5.43 mill/uL (4.70-6.10)
--- NOTE | 2019-10-27 12:34 | PDOC.CPN ---
- Subjective Date: 10/27/19 Time: 08:00 Interval history: The pt seen and examined. No overnight events. No cardiac complaints. - Objective Allergies/Adverse Reactions: Allergies Allergy/AdvReac Type Severity Reaction Status Date / Time No Known Allergies Allergy Unverified 10/24/19 23:36 Visit Medications: Current Medications Acetaminophen/Codeine Phosphate (Tylenol #3) 1 tab PO Q4H PRN PRN Reason: Mild Pain (1-3) Al Hydroxide/Mg Hydroxide (Maalox) 30 ml PO Q3H PRN PRN Reason: Indigestion Aspirin (Aspirin Chewable) 81 mg PO DAILY [facility] Last Admin: 10/27/19 08:04 Dose: 81 mg Atorvastatin Calcium (Lipitor) 80 mg PO HS [facility] Last Admin: 10/26/19 22:03 Dose: 80 mg Carvedilol (Coreg) 1.5625 mg PO QAM-WM [facility] Carvedilol (Coreg) 3.125 mg PO QPM-WM [facility] Lisinopril (Zestril) 2.5 mg PO DAILY [facility] Last Admin: 10/27/19 08:03 Dose: 2.5 mg Magnesium Hydroxide (Milk Of Magnesium) 30 ml PO Q12H PRN PRN Reason: Constipation Nitroglycerin (Nitrostat) 0.4 mg PO Q5MIN PRN PRN Reason: Chest Pain Nitroglycerin (Nitro-Bid 2% Ointment) 0.5 inch TOP Q8HR [facility] Last Admin: 10/27/19 08:06 Dose: Not Given Sodium Chloride (Flush - Normal Saline) 10 ml IVF PRN PRN PRN Reason: Saline Flush Ticagrelor (Brilinta) 90 mg PO BID [facility] Last Admin: 10/27/19 08:03 Dose: 90 mg Tramadol HCl (Ultram) 50 mg PO Q6H PRN PRN Reason: Moderate Pain (4-6) Zolpidem Tartrate (Ambien) 5 mg PO HSPRN PRN PRN Reason: Insomnia Vital Signs & Weight: Vital Signs Temp Pulse Pulse Pulse Resp BP BP 10/27/19 11:42 98.2 F 75 18 10/27/19 11:18 81 71 111/68 105/63 10/27/19 07:25 97.9 F 63 18 10/27/19 04:10 98.1 F 62 20 BP Pulse Ox Pulse Ox Pulse Ox 10/27/19 11:42 111/68 99 10/27/19 11:18 99 98 10/27/19 07:25 103/57 L 99 10/27/19 04:10 107/64 97 Weight 270 lb 6.4 oz - Physical Exam General: alert & oriented x3 HEENT: mucus membranes moist Neck: supple neck Cardiac: regular rate and rhythm, S1/S2 Lungs: clear to auscultation Neuro: cranial nerve 2-12 intact - Labs Result Diagrams: 10/27/19 08:44 10/26/19 04:23 Troponin/CKMB CK-MB (CK-2) 1.7 ng/mL (0-6.6) 10/24/19 20:54 Troponin I 12.797 ng/mL (< 0.028) H* 10/26/19 04:23 - Telemetry Sinus rhythms and dysrhythmias: sinus rhythm - Assessment/Plan Assessment/Plan: 1. CAD with CK x 1 in mid LAD with thrombectomy of LAD prior to stent placement on 10/25/2019 - Asymptomatic; On Coreg, Lipitor, ASA and Brilinta. He should be on Brilinta for 1 month and may be changed to Plavix 2. HTN - On Lisinopril and Coreg; Coreg 3.125mg was changed to 1/2 tab in AM and 1 tab in PM for tachycardia 3. HLD - On Lipitor 80mg qd 4. Obesity - the pt is willing to change his life style and eating habit. 5. Tachycardia -HR up to 136bpm, short NM ,may be SVT. Previously he was bradycardic. Coreg 3.125mg was changed to 1/2 tab in AM and 1 tab in PM for tachycardia MAR reviewed I have seen the pt and eval. He denies complaints but the tachycardia is concerning. If he has more episodes then he may need an EP evaluation. The episode this AM lasted 3-4 min. Chest clear. RRR at this time. * S/p LHC on 10/25/2019 with CK x 1 in mid LA with thrombectomy of LAD thrombus. * 30-day Brilinta sample given to the pt today; the pt will f/u with Dr Anders' office in 2 wks. after d/c. watch one more day in light of the new onset tachycardia. I will check an echo and if the EF is < 30-35% then he will need a Life-Vest prior to d/c.
--- NOTE | 2019-10-27 13:21 | PRG ---
DATE OF SERVICE: 10/27/2019 SUBJECTIVE: A 59-year-old male with obesity and GERD, presented to the hospital on October with chest discomfort. His workup was consistent with ant-Zg-ejrukdpbt MD with maximum troponin of 14.9. He underwent a cardiac catheterization on the with drug-eluting stent placement to the LAD. His ejection fraction on the cardiac cath was 40% to 45%. He had 40% stenosis in the proximal RCA. He is chest pain-free at this time. He denies any shortness of breath or palpitations. REVIEW OF SYSTEMS: No nausea, vomiting, syncope, or focal deficits. OBJECTIVE: VITAL SIGNS: Temperature 98.2, pulse 75, respirations of 18, blood pressure of 111/68, O2 saturation 99% on room air. GENERAL: A 59-year-old male in no apparent distress. LUNGS: Clear to auscultation bilaterally. HEART: S1 and S2 present. Regular. ABDOMEN: Soft, nontender. Bowel sounds present. EXTREMITIES: No edema or calf tenderness. CURRENT MEDICATIONS: Reviewed. The patient is on aspirin, Lipitor, carvedilol, lisinopril, and Brilinta. Telemetry monitoring by my review showed sinus rhythm. LABORATORY FINDINGS: BUN of 14, creatinine 1.09 with sodium 138, potassium 4. Fasting lipid showed triglycerides 162, cholesterol 214, LDL 143, HDL of 39. IMPRESSION: 1. Pke-TF-hzyslntky myocardial infarction. 2. Coronary artery disease, status post drug-eluting stent placement to the left anterior descending. 3. Obesity with a body mass index of 37.7. 4. Dyslipidemia. 5. Chronic kidney disease, stage 2. 6. Suspected sleep apnea, sleep study as outpatient is recommended. 7. Hypertension. 8. Tachyarrhythmia, suspected supraventricular tachycardia. PLAN: We will continue aspirin, Brilinta, beta-blockers with statins. We will hold YANY inhibitor or ARB due to relative hypotension. Carvedilol dose will be increased to 3.125 b.i.d. due to tachyarrhythmias. The patient will be monitored overnight per Cardiology. We will discontinue nitroglycerin patch. We will check basic metabolic profile in a.m. Lifestyle modification was emphasized. Job ID: [id number]
--- NOTE | 2019-10-27 16:08 | EKG ---
Test Reason : Blood Pressure : / mmHG Vent. Rate : 073 BPM Atrial Rate : 073 BPM P-R Int : 142 ms QRS Dur : 102 ms QT Int : 450 ms P-R-T Axes : 013 -39 117 degrees QTc Int : 495 ms Normal sinus rhythm Left axis deviation Septal infarct (cited on or before 25-OCT-2019) T wave abnormality, consider anterolateral ischemia Abnormal ECG Confirmed by MARLYN WHITE ([id number]) on 10/27/2019 4:08:26 PM Referred By: EMELY Confirmed By:MARLYN WHITE
[2019-10-27] MEDS ORDERED: Carvedilol 3.125 MG TAB PO SCH (17:00)
[2019-10-27] MEDS: Atorvastatin Calcium 40 MG TAB PO SCH (20:27)
[2019-10-28 05:40] LABS: #Basophils 0.1 thou/uL (0.0-0.2); #Eosinphils 0.1 thou/uL (0.0-0.7); #Lymphocytes 2.6 thou/uL (1.20-3.40); #Monocytes 0.5 thou/uL (0.11-0.59); #Neutrophils 5.8 thou/uL (1.40-6.50); %Basophils 1.3 % (0.0-1.0); %Eosinophils 1.3 % (0.0-10.0); %Lymphocytes 28.3 % (21.0-51.0); %Monocytes 5.7 % (0.0-10.0); %Neutrophils 63.4 % (42.0-75.0); Hemoglobin 15.5 g/dL (14.0-18.0); Mean Corpuscular HGB CONC 33.6 g/dL (32.0-36.0); Mean Corpuscular Hemoglobin 29.9 pg (27.0-31.0); Mean Corpuscular Volume 89.1 fL (78.0-98.0); Mean Platelet Volume 9.6 fL (7.4-10.4); Platelet Count 194 thou/uL (130-400); RBC Distribution Width 11.8 % (11.5-14.5); Red Blood Cell (RBC) Count 5.17 mill/uL (4.70-6.10); White Blood Cell (WBC) Count 9.1 thou/uL (4.8-10.8)
[2019-10-28 06:03] LABS: Anion Gap 15 mmol/L (10-20); BUN (Urea Nitrogen) 23 mg/dL (8.4-25.7); Calc. Creatinine Clearance 140 mL/min (70-130); Carbon Dioxide 19 mmol/L (22-29); Chloride 106 mmol/L (98-107); Estimated GFR-MDRD 77; Potassium 4.1 mmol/L (3.5-5.1); Sodium 136 mmol/L (136-145)
[2019-10-28 06:04] LABS: Calcium 9.4 mg/dL (7.8-10.44); Glucose 102 mg/dL (70-105); Magnesium 2.1 mg/dL (1.6-2.6)
[2019-10-28] MEDS: Aspirin Chewable 81 MG TAB PO SCH (07:57)
[2019-10-28] MEDS: Lisinopril 2.5 MG TAB PO SCH (07:57)
[2019-10-28] MEDS: TICAGRELOR 90 MG TABLET PO SCH (07:57)
[2019-10-28] MEDS ORDERED: Carvedilol 3.125 MG TAB PO SCH (08:00)
[2019-10-28 11:18] VITALS: TEMP 97.8
[2019-10-28 13:05] VITALS: BP 120/67
--- NOTE | 2019-10-28 13:13 | DIS ---
DATE OF ADMISSION: 10/24/2019 DATE OF DISCHARGE: 10/28/2019 DISCHARGE DISPOSITION: Home. FOLLOWUP: 1. Follow up with Dr. Erika Solis next week as scheduled. 2. Follow up with outpatient cardiac rehab. 3. Follow up with Cardiology, Dr. Anders in 3 to 4 weeks. ALLERGIES: NO KNOWN DRUG ALLERGIES. DISCHARGE MEDICATIONS: 1. Aspirin 81 mg daily. 2. Lipitor 80 mg at bedtime. 3. Carvedilol 3.125 mg q.p.m. and 1.56 mg q.a.m. 4. Lisinopril 2.5 mg daily. 5. Brilinta 90 mg b.i.d. PHYSICAL EXAMINATION: The patient was seen and examined on the day of discharge. Denies any new complaints. VITAL SIGNS: Showed temperature 97.8, pulse rate of 64, respiration of 18, blood pressure of 108/61, O2 saturation 98% on room air. GENERAL: A 59-year-old male, in no apparent distress. LUNGS: Clear to auscultation bilaterally. HEART: S1, S2 present. Regular rate and rhythm. INPATIENT CONSULTATION: Cardiology, Dr. Anders. BRIEF HOSPITAL COURSE: The patient is a 59-year-old male with obesity, presented to the emergency room on October 25, 2019, with chest discomfort. His workup was consistent with iny-NM-bcncwobos VT with maximum troponin of 14.9. He underwent cardiac catheterization on October 25, 2019, with drug-eluting stent placement to the LAD. His ejection fraction on the cardiac catheterization was 40% to 45%. He also had 40% stenosis in the proximal RCA. He has been started on low-dose YANY inhibitor as well as beta-blockers. He has been cleared by Cardiology for discharge. FINAL DIAGNOSES: 1. Gtj-IA-gfrysgagh myocardial infarction. 2. Coronary artery disease, status post drug-eluting stent placement to the mid LAD. 3. Obesity with a BMI of 37.7. 4. Cardiomyopathy with ejection fraction of 40% to 45% on cardiac catheterization. 5. Dyslipidemia. 6. Chronic kidney disease stage 2. 7. Obstructive sleep apnea. Sleep study as outpatient is recommended. 8. Hypertension. 9. Tachyarrhythmia, suspected supraventricular tachycardia. The patient understands the above plan of care. Job ID: [id number]
== END 2019-10-28 14:00 | disposition home or self-care (01) | DRG 247 ==
LOC: ERS 20:28 → 2SE 22:49 → OBSVTOIN 22:49 → 2NO 10-25 15:01
PROVIDERS: ADMIT Emergency Medicine; ATTEND Emergency Medicine
PROC: 027034Z Dilation of Coronary Artery, One Artery with Drug-eluting Intraluminal Device, Percutaneous Approach (ICD-10-PCS; principal; 2019-10-25)
PROC: 02C03ZZ Extirpation of Matter from Coronary Artery, One Artery, Percutaneous Approach (ICD-10-PCS; 2019-10-25)
PROC: 4A023N7 Measurement of Cardiac Sampling and Pressure, Left Heart, Percutaneous Approach (ICD-10-PCS; 2019-10-25)
PROC: B2151ZZ Fluoroscopy of Left Heart using Low Osmolar Contrast (ICD-10-PCS; 2019-10-25)
PROC: B2111ZZ Fluoroscopy of Multiple Coronary Arteries using Low Osmolar Contrast (ICD-10-PCS; 2019-10-25)
DX: I21.4 Non-ST elevation (NSTEMI) myocardial infarction (principal); I42.9 Cardiomyopathy, unspecified; I47.1 Supraventricular tachycardia; E66.9 Obesity, unspecified; K21.9 Gastro-esophageal reflux disease without esophagitis; E78.00 Pure hypercholesterolemia, unspecified; E11.69 Type 2 diabetes mellitus with other specified complication; E78.5 Hyperlipidemia, unspecified; I25.10 Atherosclerotic heart disease of native coronary artery without angina pectoris; I12.9 Hypertensive chronic kidney disease with stage 1 through stage 4 chronic kidney disease, or unspecified chronic kidney disease; E11.22 Type 2 diabetes mellitus with diabetic chronic kidney disease; N18.2 Chronic kidney disease, stage 2 (mild); G47.33 Obstructive sleep apnea (adult) (pediatric); Z68.37 Body mass index [BMI] 37.0-37.9, adult
CPT/HCPCS: 36415; 71045; 80048; 80053; 80061; 82550; 82553; 83690; 83735; 84443; 84484; 85025; 92928; 92973; 93005; 93010; 93306; 93458; 93798; 94760; 99152; 99153; C1757; C1769; C1874; C9113; C9600; J1644; J1650; J2250; J3246; J3475

== ENCOUNTER 2025-03-19 16:00 | Outpatient (CLI) | payer OTHER | END 2025-03-19 16:01 | disposition home or self-care (01) | LOC: BICRAD 16:00 | PROVIDERS: ATTEND Family Medicine | DX: R05.9 Cough, unspecified (principal); J18.9 Pneumonia, unspecified organism; J32.8 Other chronic sinusitis; N62 Hypertrophy of breast | CPT/HCPCS: 71046 ==